=== PATIENT | male | born 1955 | race American Indian/Alaskan Native ===

== ENCOUNTER 2018-04-24 04:36 | Emergency (ER) | payer SELFPAY ==
[2018-04-24] MEDS ORDERED: ZOFRAN ODT PO ONE (04:45)
[2018-04-24] MEDS ORDERED: ZOFRAN ODT ONE (04:45)
[2018-04-24] MEDS ORDERED: NACL 0.9% 1000 ML 1,000 ML IV ONE (04:48)
[2018-04-24 05:14] LABS: Basophils % (Auto) 0.7 % (0.0-1.8); Eosinophils # (Auto) 0.3 K/mm3 (0.0-0.4); Eosinophils % (Auto) 4.4 % (0.0-4.3); Hemoglobin 13.8 gm/dl (11.8-15.2); Lymphocytes # (Auto) 2.9 K/mm3 (1.2-5.4); Lymphocytes % (Auto) 40.3 % (13.4-35.0); Mean Corpuscular HGB Conc 34 % (32-34); Mean Corpuscular Hemoglobin 32 pg (28-32); Mean Corpuscular Volume 92 fl (84-94); Monocytes # (Auto) 0.6 K/mm3 (0.0-0.8); Monocytes % (Auto) 9.1 % (0.0-7.3); Platelet Count 285 K/mm3 (140-440); Red Blood Count 4.35 M/mm3 (3.65-5.03); Red Cell Distribution Width 13.3 % (13.2-15.2)
[2018-04-24 05:19] LABS: Amorphous Crystals,Urine 2+; Bilirubin,Urine NEG (Negative); Blood,Urine NEG (Negative); Color,Urine Yellow (Yellow)
[2018-04-24 05:21] LABS: WBC,Urine < 1.0 /HPF (0.0-6.0)
[2018-04-24 05:32] LABS: Alanine Aminotransferase 18 units/L (7-56); Albumin 4.5 g/dL (3.9-5); BUN/Creatinine Ratio 16; Blood Urea Nitrogen 14 mg/dL (9-20); Calcium 9.7 mg/dL (8.4-10.2); Hemolysis Index 14
--- NOTE | 2018-04-24 06:42 | Emergency Department Report ---
ED Abdominal Pain HPI - General Chief Complaint: Abdominal Pain Stated Complaint: ULCERS/STOMACH PAIN/VOMITING Time Seen by Provider: 04/24/18 06:39 Source: patient, RN notes reviewed Mode of arrival: Ambulatory Limitations: No Limitations - History of Present Illness Initial Comments: This is a pleasant 62-year-old gentleman, who is not known to this provider previously, past medical history includes perforated ulcer, emergency exploratory laparotomy, hypertension, history of appendectomy. The patient presents to the ER with a complaint of burning diffuse abdominal pain, most prominent in the epigastric region, nausea and vomiting, no chest pain, no shortness of breath, reports this feels similar but less intense than his prior episode of perforated gastric ulcer. He denies hematemesis, bright red blood per rectum, DVT, pulmonary embolus risk factors, and urinary symptoms. His pain is burning and aching, does not radiate anywhere, and does not appear to have exacerbating or relieving factors. MD Complaint: abdominal pain -: Gradual Location: diffuse Quality: cramping, stabbing, aching Consistency: intermittent Improves With: nothing Worsens With: nothing Associated Symptoms: nausea, vomiting, diarrhea. denies: fever, chills, constipation, dysuria, hematemesis, hematochezia, melena, hematuria, anorexia, syncope - Related Data Previous Rx's Medication Instructions Recorded Last Taken Type Dicyclomine [Bentyl] 10 mg PO QID PRN #60 capsule 04/24/18 Unknown Rx Ondansetron [Zofran Odt] 4 mg PO Q8HR PRN #20 tab.rapdis 04/24/18 Unknown Rx Sucralfate [Carafate] 1 gm PO ACHS #120 udc 04/24/18 Unknown Rx Allergies Allergy/AdvReac Type Severity Reaction Status Date / Time No Known Allergies Allergy Unverified 04/24/18 04:44 ED Review of Systems ROS: Stated complaint: ULCERS/STOMACH PAIN/VOMITING Other details as noted in HPI Comment: All other systems reviewed and negative ED Past Medical Hx - Past Medical History Previous Medical History?: Yes Hx Heart Attack/AMI: Yes Additional medical history: abd ulcer - Surgical History Past Surgical History?: Yes Additional Surgical History: "surgery on ruptured ulcer" - Social History Smoking Status: Never Smoker Substance Use Type: None - Medications Home Medications: Home Medications Medication Instructions Recorded Confirmed Last Taken Type Dicyclomine [Bentyl] 10 mg PO QID PRN #60 capsule 04/24/18 Unknown Rx Ondansetron [Zofran Odt] 4 mg PO Q8HR PRN #20 tab.rapdis 04/24/18 Unknown Rx Sucralfate [Carafate] 1 gm PO ACHS #120 udc 04/24/18 Unknown Rx ED Physical Exam - General Limitations: No Limitations General appearance: alert, in no apparent distress - Head Head exam: Present: atraumatic, normocephalic - Eye Eye exam: Present: normal appearance, EOMI. Absent: nystagmus - ENT ENT exam: Present: normal exam, normal orophraynx, mucous membranes moist, normal external ear exam - Neck Neck exam: Present: normal inspection, full ROM. Absent: tenderness, meningismus - Respiratory Respiratory exam: Present: normal lung sounds bilaterally. Absent: respiratory distress - Cardiovascular Cardiovascular Exam: Present: regular rate, normal rhythm, normal heart sounds. Absent: bradycardia, tachycardia, irregular rhythm, systolic murmur, diastolic murmur, rubs, gallop - GI/Abdominal GI/Abdominal exam: Present: soft, normal bowel sounds. Absent: distended, tenderness, guarding, rebound, rigid, pulsatile mass - Rectal Rectal exam: Present: deferred - Extremities Exam Extremities exam: Present: normal inspection, full ROM, normal capillary refill , other (2+ pulses noted in the bilateral upper, lower extremities. Compartments soft. No long bony tenderness. The pelvis is stable.). Absent: tenderness, pedal edema, joint swelling, calf tenderness - Back Exam Back exam: Present: normal inspection, full ROM. Absent: tenderness, CVA tenderness (R), paraspinal tenderness, vertebral tenderness - Neurological Exam Neurological exam: Present: alert, oriented X3, CN II-XII intact, normal gait, other (Extraocular movements intact. Tongue midline. No facial droop. Facial sensation intact to light touch in the V1, V2, V3 distribution bilaterally. 5 and 5 strength in 4 extremities.. Sensation is intact to light touch in 4 extremities.). Absent: motor sensory deficit - Psychiatric Psychiatric exam: Present: normal affect, normal mood - Skin Skin exam: Present: warm, dry, intact, normal color. Absent: rash ED Course Vital Signs 04/24/18 04/24/18 04/24/18 04:41 04:45 06:38 Temperature 98.9 F 98.9 F 97.9 F Pulse Rate 62 62 61 Respiratory 16 18 17 Rate Blood Pressure 176/91 176/91 Blood Pressure 190/99 [Right] O2 Sat by Pulse 98 98 97 Oximetry - Reevaluation(s) Reevaluation #1: 04/24/18 07:19 Differential diagnosis, including but not limited to: GERD, gastritis, hiatal hernia, pancreatitis, acute coronary syndrome, perforated viscus, ileus, bowel obstruction Assessment and plan: 62-year-old gentleman with complex surgical history, reported abdominal pain, nausea and vomiting. He is afebrile with reassuring vital signs with the exception of elevated blood pressure, which may be secondary to pain and may be secondary to patient not taking his antihypertensive medications. Patient's abdomen is nontender and soft. We will check basic laboratory studies , EKG, x-ray of the chest, CT scan of the abdomen and pelvis with oral contrast and we will reassess. The patient's pain will be treated. Reevaluation #2: 04/24/18 08:48 CT scan demonstrates duodenitis with ulcer that is not perforated. Belly remains soft. Patient may follow up with outpatient gastroenterology for this. We'll continue his sucralfate and bentyl. He will also be discharged with nonnarcotic pain medication. Elevated blood pressure is appreciated. He can follow up with an outpatient primary care doctor or consumer loan specialist for this. Based on his history, physical and CT scan findings, I think it is very unlikely that the patient is having acute coronary syndrome. Based on the history and physical, I find the patient to be low risk by the heart score. He can follow up with an outpatient primary care doctor or consumer loan specialist for his incidental abnormal EKG, and elevated blood pressure. Reevaluation #3: 04/24/18 08:53 EKG #2 was unchanged. Troponin negative 2. Blood pressure in the 170s. Please reference the [employer] clinical policy and hypertension that is not acutely symptomatic. ED Medical Decision Making - Lab Data Result diagrams: 04/24/18 04:52 04/24/18 04:52 Vital Signs 04/24/18 04/24/18 04/24/18 04:41 04:45 06:38 Temperature 98.9 F 98.9 F 97.9 F Pulse Rate 62 62 61 Respiratory 16 18 17 Rate Blood Pressure 176/91 176/91 Blood Pressure 190/99 [Right] O2 Sat by Pulse 98 98 97 Oximetry Lab Results 04/24/18 04/24/18 04/24/18 Range/Units 04:46 04:52 04:52 WBC 7.1 (4.5-11.0) K/mm3 RBC 4.35 (3.65-5.03) M/mm3 Hgb 13.8 (11.8-15.2) gm/dl Hct 40.0 (35.5-45.6) % MCV 92 (84-94) fl MCH 32 (28-32) pg MCHC 34 (32-34) % RDW 13.3 (13.2-15.2) % Plt Count 285 (140-440) K/mm3 Lymph % (Auto) 40.3 H (13.4-35.0) % Greene % (Auto) 9.1 H (0.0-7.3) % Eos % (Auto) 4.4 H (0.0-4.3) % Baso % (Auto) 0.7 (0.0-1.8) % Lymph # 2.9 (1.2-5.4) K/mm3 Greene # 0.6 (0.0-0.8) K/mm3 Eos # 0.3 (0.0-0.4) K/mm3 Baso # 0.0 (0.0-0.1) K/mm3 Seg Neutrophils % 45.5 (40.0-70.0) % Seg Neutrophils # 3.2 (1.8-7.7) K/mm3 Sodium 139 (137-145) mmol/L Potassium 4.2 (3.6-5.0) mmol/L Chloride 100.9 (98-107) mmol/L Carbon Dioxide 28 (22-30) mmol/L Anion Gap 14 mmol/L BUN 14 (9-20) mg/dL Creatinine 0.9 (0.8-1.5) mg/dL Estimated GFR > 60 ml/min BUN/Creatinine Ratio 16 % Glucose 161 H (75-100) mg/dL Calcium 9.7 (8.4-10.2) mg/dL Total Bilirubin 0.50 (0.1-1.2) mg/dL AST 20 (5-40) units/L ALT 18 (7-56) units/L Alkaline Phosphatase 89 (35-129) units/L Total Protein 7.4 (6.3-8.2) g/dL Albumin 4.5 (3.9-5) g/dL Albumin/Globulin Ratio 1.6 % Urine Color Yellow (Yellow) Urine Turbidity Turbid (Clear) Urine pH 8.0 H (5.0-7.0) Ur Specific Griffin 1.019 (1.003-1.030) Urine Protein 30 mg/dl (Negative) mg/dL Urine Glucose (UA) Neg (Negative) mg/dL Urine Ketones Neg (Negative) mg/dL Urine Blood Neg (Negative) Urine Nitrite Neg (Negative) Urine Bilirubin Neg (Negative) Urine Urobilinogen 4.0 (<2.0) mg/dL Ur Leukocyte Esterase Neg (Negative) Urine WBC (Auto) < 1.0 (0.0-6.0) /HPF Urine RBC (Auto) 11.0 (0.0-6.0) /HPF U Epithel Cells (Auto) 1.0 (0-13.0) /HPF Amorphous Crystals 2+ - EKG Data -: EKG Interpreted by Nd - EKG Data When compared to previous EKG there are: previous EKG unavailable 04/24/18 07:21 Sinus, bradycardia, 58 bpm, normal axis, TX interval prolonged, abnormal EKG, this EKG is not a STEMI - Radiology Data Radiology results: report reviewed, image reviewed X-ray of the chest is unremarkable CT scan of the abdomen and pelvis suggest a lot no ulcer and wide tinnitus. There is no evidence of perforation. Critical care attestation.: If time is entered above; I have spent that time in minutes in the direct care of this critically ill patient, excluding procedure time. ED Disposition Clinical Impression: Duodenitis, Hypertension Disposition: DC-01 TO HOME OR SELFCARE Is pt being admited?: No Does the pt Need Aspirin: No Condition: Stable Instructions: Hypertension (ED) Additional Instructions: Avoid consumption of Motrin, ibuprofen, Naprosyn, Aleve, heavy, spicy foods. Take the medications as needed/directed. Follow up with a tetryl wringer operator within the next 3-4 weeks. Please note the patient had markedly elevated blood pressure, and nonspecific abnormalities on the EKG. This should be followed up by a consumer loan specialist or primary care doctor within the next 3-4 weeks. Long-term complications of hypertension and elevated blood pressure and stroke, heart attack, disability, paralysis, loss of quality of life. Return to the ER right away with new pain, worsened pain, migration of pain, projectile vomiting, change in mental status, confusion, inability to tolerate liquid feeds. [facility] is a local gastroenterology practice. [facility] as a local medical practices. [facility] is a local cardiology practice. Prescriptions: Dicyclomine [Bentyl] 10 mg PO QID PRN #60 capsule PRN Reason: Pain , Severe (7-10) Ondansetron [Zofran Odt] 4 mg PO Q8HR PRN #20 tab.rapdis PRN Reason: Nausea Sucralfate [Carafate] 1 gm PO ACHS #120 udc Referrals: PRIMARY CARE, [Primary Care Provider] - 3-5 Days [facility] [Provider Group] - 3-5 Days [facility] [Provider Group] - 3-5 Days [facility] [Provider Group] - 3-5 Days
[2018-04-24] MEDS ORDERED: SUBLIMAZE IV ONE (06:49)
[2018-04-24] MEDS ORDERED: PEPCID IV ONE (06:49)
--- NOTE | 2018-04-24 07:09 | XRay Report ---
FINAL REPORT EXAM: XR CHEST 1V AP HISTORY: epigastric pain n/v TECHNIQUE: AP portable view(s) of the chest obtained. PRIORS: None. FINDINGS: No mediastinal shift. Cardiac silhouette is not enlarged. No pneumothorax, effusion, or focal pulmonary opacity identified. No acute skeletal findings. IMPRESSION: No acute pulmonary finding identified.
[2018-04-24] MEDS ORDERED: NACL 0.9% 50 ML ONE (07:44)
--- NOTE | 2018-04-24 08:25 | Cat Scan Report ---
CT ABDOMEN PELVIS WITH CONTRAST: HISTORY: Abdominal pain, nausea and vomiting, history of perforated gastric ulcer. COMPARISON: none. TECHNIQUE: Helical CT in 1.25mm intervals following IV contrast. Sagittal and coronal reconstructions. FINDINGS: Lung bases: Normal. Liver: Normal. Biliary system: Normal. Pancreas: Normal. Spleen: Normal. Kidneys/ureters/bladder: Normal. Adrenal glands: Normal. Aorta: Normal. Intestines: Mild circumferential thickening of the duodenum is suspected. There is suggestion of a focal area of mucosal ulceration along the superior surface of the duodenal bulb. There is no evidence for free air or surrounding fluid collection. The gastric cavity, remainder of the small bowel loops and colon are within normal limits. Appendix: Appendectomy changes are suspected. Pelvic viscera: Normal. Ascites: None. Adenopathy: None. Musculoskeletal: Moderate degenerative disc disease at L4-5 and L5-S1. Advanced osteoarthritis of the right hip. No fracture or suspicious bony lesion. IMPRESSION: Mild diffuse thickening of the duodenum suggesting duodenitis. There appears to be a focal ulceration in the duodenal bulb measuring approximately 1 cm in diameter. No evidence for perforation on this exam. .
[2018-04-24 08:58] VITALS: BP 178/90
== END 2018-04-24 09:40 | disposition home or self-care (01) ==
LOC: ED 04:36
DX: K29.80 Duodenitis without bleeding (principal); I10 Essential (primary) hypertension; I25.2 Old myocardial infarction
CPT/HCPCS: 36415; 71045; 74177; 80053; 81001; 82140; 83690; 83735; 84484; 85025; 93005; 93010; 96374; 96375; 99285; J3010; Q9967; Q0162